=== PATIENT | female | born 1975 | race Caucasian/White ===

== ENCOUNTER 2023-06-23 16:40 | Inpatient (IN) | payer SELFPAY ==
[2023-06-23] MEDS: Sodium Chloride 0.9% 10 ML Syringe FLUSH PRN (18:08)
[2023-06-23] MEDS: Cefepime 2 GM Vial IVPUSH ONE (18:08)
[2023-06-23 18:20] LABS: BASOPHILS ABSOLUTE AUTO 0.1 x10-3/uL (0.0-0.1); BASOPHILS PERCENT AUTO 0.5 % (0.2-1.5); EOSINOPHILS ABSOLUTE AUTO 0.1 x10-3/uL (0.0-0.8); EOSINOPHILS PERCENT AUTO 0.7 % (0.6-8.1); HEMATOCRIT 47.2 % (34.2-48.2); HEMOGLOBIN 16.6 g/dL (11.4-15.5); LYMPHOCYTES ABSOLUTE AUTO 2.6 x10-3/uL (1.0-4.4); LYMPHOCYTES PERCENT AUTO 18.5 % (18.4-52.1); MEAN CORPUSCULAR HEMOGLOBIN 33.4 pg (23.9-33.9); MEAN CORPUSCULAR HGB CONC 35.2 g/dL (31.9-34.8); MEAN CORPUSCULAR VOLUME 95.1 fL (76.7-100.5); MONOCYTES ABSOLUTE AUTO 1.4 x10-3/uL (0.3-1.0); MONOCYTES PERCENT AUTO 9.9 % (4.4-15.7); NEUTROPHILS ABSOLUTE AUTO 9.8 x10-3/uL (1.5-6.3); NEUTROPHILS PERCENT AUTO 70.4 % (30.8-76.2); PLATELET COUNT,PLT 246 x10(3)uL (151-488); RED BLOOD CELL COUNT 4.96 x10(6)uL (3.60-5.20); RED CELL DISTRIBUTION WIDTH 12.4 % (12.3-16.5)
[2023-06-23] MEDS: Clindamycin Phosphate 600 MG in Dextrose 5% in Water 50 ML IV ONE (18:20)
[2023-06-23 18:21] LABS: BLOOD UREA NITROGEN,BUN 12 mg/dL (7-18); BUN/CREATININE RATIO 13.3 (9-20); CALCIUM 9.9 mg/dL (8.6-10.2); CARBON DIOXIDE,CO2 26 mmol/L (21-32); CHLORIDE,CL 98 mmol/L (100-110); CREATININE 0.9 mg/dL (0.55-1.02); EST CRCL DRUG DOSING (CG) 62.55 mL/min; ESTIMATED GFR 78 mL/min (>60); GLUCOSE RANDOM 112 mg/dL (80-116); POTASSIUM,K 4.3 mmol/L (3.5-5.3); SODIUM,NA 134 mmol/L (135-145)
[2023-06-23 18:27] LABS: ALANINE AMINOTRANSFERASE,ALT 35 U/L (12-36); ALKALINE PHOSPHATASE 105 IU/L (56-112); ASPARTATE AMNIOTRANSFERASE,AST 18 IU/L (5-25); PROTEIN TOTAL,TP 8.2 g/dL (6.0-8.0)
[2023-06-23 18:32] LABS: LACTIC ACID 1.1 mmol/L (0.4-2.0)
[2023-06-23] MEDS ORDERED: Sennosides/Docusate Sodium 50-8.6 MG Tab PO PRN (19:12)
[2023-06-23] MEDS ORDERED: Ondansetron 4 MG/2 ML SDV IV PRN (19:12)
[2023-06-23] MEDS ORDERED: Ketorolac 30 MG/ML SDV IVPUSH PRN (19:20)
[2023-06-23] MEDS: Iopamidol 755 Mg/ML 100 ML Bottle IV SCH (19:25)
[2023-06-23] MEDS: Enoxaparin 40 MG/0.4 ML Syringe SUBCUT SCH (21:09)
[2023-06-24] MEDS: Acetaminophen/oxyCODONE 325-5 MG Tab PO PRN (02:18)
[2023-06-24] MEDS: Clindamycin in 0.9 % Sod Chlor 600 MG in Premix Bag 1 BAG IV SCH (02:21)
[2023-06-24 06:33] LABS: BASOPHILS ABSOLUTE AUTO 0.1 x10-3/uL (0.0-0.1); BASOPHILS PERCENT AUTO 0.5 % (0.2-1.5); EOSINOPHILS ABSOLUTE AUTO 0.1 x10-3/uL (0.0-0.8); HEMATOCRIT 42.5 % (34.2-48.2); HEMOGLOBIN 14.9 g/dL (11.4-15.5); LYMPHOCYTES ABSOLUTE AUTO 2.5 x10-3/uL (1.0-4.4); LYMPHOCYTES PERCENT AUTO 20.5 % (18.4-52.1); MEAN CORPUSCULAR HEMOGLOBIN 33.2 pg (23.9-33.9); MEAN CORPUSCULAR VOLUME 94.8 fL (76.7-100.5); MEAN PLATELET VOLUME 8.8 fL (7.1-12.4); MONOCYTES ABSOLUTE AUTO 1.3 x10-3/uL (0.3-1.0); MONOCYTES PERCENT AUTO 10.5 % (4.4-15.7); NEUTROPHILS ABSOLUTE AUTO 8.2 x10-3/uL (1.5-6.3); NEUTROPHILS PERCENT AUTO 67.5 % (30.8-76.2); PLATELET COUNT,PLT 226 x10(3)uL (151-488); RED BLOOD CELL COUNT 4.48 x10(6)uL (3.60-5.20); RED CELL DISTRIBUTION WIDTH 12.6 % (12.3-16.5); WHITE BLOOD CELL COUNT,WBC 12.2 x10-3/uL (3.0-10.3)
[2023-06-24 06:38] LABS: BLOOD UREA NITROGEN,BUN 10 mg/dL (7-18); BUN/CREATININE RATIO 12.5 (9-20); CALCIUM 9.1 mg/dL (8.6-10.2); CARBON DIOXIDE,CO2 27 mmol/L (21-32); CHLORIDE,CL 97 mmol/L (100-110); CREATININE 0.8 mg/dL (0.55-1.02); EST CRCL DRUG DOSING (CG) 70.37 mL/min; ESTIMATED GFR 90 mL/min (>60); GLUCOSE RANDOM 103 mg/dL (80-116); POTASSIUM,K 3.9 mmol/L (3.5-5.3); SODIUM,NA 132 mmol/L (135-145)
[2023-06-24] MEDS: Cefepime 1 GM Vial IVPUSH SCH (08:23)
[2023-06-24] MEDS ORDERED: Albuterol 6.7 GM Inhaler INH PRN (09:24)
[2023-06-24] MEDS ORDERED: hydrOXYzine Pamoate 25 MG Cap PO PRN (09:24)
[2023-06-24] MEDS ORDERED: Nicotine 21 MG/24 Hr Patch TRDERM PRN (09:53)
[2023-06-24] MEDS: Escitalopram 20 MG Tab PO SCH (10:37)
[2023-06-25 06:52] LABS: BASOPHILS ABSOLUTE AUTO 0.1 x10-3/uL (0.0-0.1); BASOPHILS PERCENT AUTO 0.6 % (0.2-1.5); EOSINOPHILS ABSOLUTE AUTO 0.1 x10-3/uL (0.0-0.8); EOSINOPHILS PERCENT AUTO 1.3 % (0.6-8.1); HEMATOCRIT 39.5 % (34.2-48.2); HEMOGLOBIN 13.9 g/dL (11.4-15.5); LYMPHOCYTES ABSOLUTE AUTO 1.6 x10-3/uL (1.0-4.4); LYMPHOCYTES PERCENT AUTO 14.7 % (18.4-52.1); MEAN CORPUSCULAR HEMOGLOBIN 33.4 pg (23.9-33.9); MEAN CORPUSCULAR HGB CONC 35.1 g/dL (31.9-34.8); MEAN PLATELET VOLUME 9.1 fL (7.1-12.4); MONOCYTES ABSOLUTE AUTO 1.2 x10-3/uL (0.3-1.0); MONOCYTES PERCENT AUTO 11.1 % (4.4-15.7); NEUTROPHILS ABSOLUTE AUTO 7.8 x10-3/uL (1.5-6.3); NEUTROPHILS PERCENT AUTO 72.3 % (30.8-76.2); PLATELET COUNT,PLT 209 x10(3)uL (151-488); RED BLOOD CELL COUNT 4.16 x10(6)uL (3.60-5.20); RED CELL DISTRIBUTION WIDTH 12.5 % (12.3-16.5); WHITE BLOOD CELL COUNT,WBC 10.8 x10-3/uL (3.0-10.3)
[2023-06-25 07:02] LABS: BLOOD UREA NITROGEN,BUN 8 mg/dL (7-18); BUN/CREATININE RATIO 11.4 (9-20); CALCIUM 8.1 mg/dL (8.6-10.2); CARBON DIOXIDE,CO2 28 mmol/L (21-32); CHLORIDE,CL 99 mmol/L (100-110); CREATININE 0.7 mg/dL (0.55-1.02); EST CRCL DRUG DOSING (CG) 80.42 mL/min; ESTIMATED GFR 106 mL/min (>60); GLUCOSE RANDOM 107 mg/dL (80-116); POTASSIUM,K 3.8 mmol/L (3.5-5.3); SODIUM,NA 134 mmol/L (135-145)
== END 2023-06-25 09:45 | disposition home or self-care (01) | DRG 159 ==
LOC: FB.ED 16:40 → FB.MS 19:26
PROVIDERS: ADMIT Emergency Medicine; ATTEND Family Medicine
DX: K04.7 Periapical abscess without sinus (principal); F17.210 Nicotine dependence, cigarettes, uncomplicated; F33.42 Major depressive disorder, recurrent, in full remission; F41.9 Anxiety disorder, unspecified; K08.89 Other specified disorders of teeth and supporting structures; Z79.899 Other long term (current) drug therapy; Z88.0 Allergy status to penicillin; Z98.890 Other specified postprocedural states
CPT/HCPCS: 36415; 70487; 70491; 80048; 80053; 83605; 85025; 86140; 87040; 99222; 99238; 99283; A9270-GY; J0692; J1650; J3490; Q9967